=== PATIENT | female | born 1980 | race Caucasian/White ===

== ENCOUNTER 2016-11-22 01:34 | Emergency (ER) | payer BC ==
[~2016-11-22] VITALS: Ht 162.6 cm; Wt 104.5 kg
[2016-11-22] MEDS ORDERED: SUDAFED PE PRE1 EAC2 PO (05:22)
[2016-11-22] MEDS ORDERED: AUGMENTIN875 MG PO (05:22)
[2016-11-22 05:40] VITALS: BP 133/81
== END 2016-11-22 05:44 | disposition home or self-care (01) ==
LOC: EME 01:34
DX: J01.90 Acute sinusitis, unspecified (principal); H66.93 Otitis media, unspecified, bilateral; R05 Cough; R11.0 Nausea; J02.9 Acute pharyngitis, unspecified; R42 Dizziness and giddiness
CPT/HCPCS: 71020; 87651 90; 99281; 99284